=== PATIENT | female | born 1945 | race Native Hawaiian/Other Pacific Islander ===

== ENCOUNTER 2016-10-14 10:56 | Outpatient (CLI) | payer OTHER ==
[~2016-10-14 10:56] MED LIST: ACET7.5T70 PO; ALBUTEROL0.083 % IN; ALPHAGAN P0.1 % OPTH; AMBIEN CR12.5 MG PO; BACITRACIN OP; BENZ100C8 PO; BRIM0.2S OPTH; CELEBREX100 MG PO; CHLOSUS43 PO; CIPRODEX1 ML OT; CYCL10TA35 PO; DIPH25CA90 PO; GABA300C2 PO; HUMIRA PE1 SC; HYDR12.54 PO; HYDR25TA60 PO; HYDROCO/APAP1 T10 PO; LUTEIN20 MG OR; METHOTREXATE2.5 MG PO; MONT10TA PO; MUCINEX PO; PREDNISONE5 M1 OR; RANI150T78 PO; SIMCOR1 TA1 PO; SIMCOR1 TAB; SINGULAIR10 MG PO; Z-PAK PO; ZITHROMAX PO
== END 2016-10-14 20:10 | disposition home or self-care (01) ==
LOC: RAD 10:56
DX: M17.11 Unilateral primary osteoarthritis, right knee (principal)

== ENCOUNTER 2016-10-23 14:58 | Outpatient (CLI) | payer OTHER ==
[2016-10-23 16:18] LABS: PLATELET COUNT 212 K/uL (152-353)
[2016-10-23 16:19] LABS: SODIUM 136 mmol/L (136-145)
== END 2016-10-23 15:58 | disposition home or self-care (01) ==
LOC: LAB 14:58
PROVIDERS: Nurse Practitioner Family
DX: F41.8 Other specified anxiety disorders (principal); E78.4 Other hyperlipidemia; Z79.899 Other long term (current) drug therapy; Z51.81 Encounter for therapeutic drug level monitoring
CPT/HCPCS: 80053; 80061; 83036; 84439; 84443; 85027

== ENCOUNTER 2017-01-15 13:56 | Outpatient (CLI) | payer OTHER ==
[2017-01-15 14:27] LABS: PLATELET COUNT 226 K/uL (152-353)
[2017-01-15 14:37] LABS: POTASSIUM 3.7 mmol/L (3.6-5.2); SODIUM 140 mmol/L (136-145)
== END 2017-01-15 15:00 | disposition home or self-care (01) ==
LOC: LAB 13:56
PROVIDERS: Nurse Practitioner Family
DX: E11.9 Type 2 diabetes mellitus without complications (principal); I10 Essential (primary) hypertension; E55.9 Vitamin D deficiency, unspecified; E78.4 Other hyperlipidemia
CPT/HCPCS: 80053; 80061; 82306; 82607; 83036; 84439; 84443; 85027

== ENCOUNTER 2017-09-23 08:45 | Outpatient (CLI) | payer OTHER ==
[~2017-09-23] VITALS: Ht 162.6 cm; Wt 73.5 kg
== END 2017-09-23 12:00 | disposition home or self-care (01) ==
LOC: NM 08:45
DX: R07.89 Other chest pain (principal); I10 Essential (primary) hypertension; E11.9 Type 2 diabetes mellitus without complications
CPT/HCPCS: 93306; A9500; J2785

== ENCOUNTER 2017-12-24 09:35 | Outpatient (CLI) | payer OTHER | END 2017-12-24 20:53 | disposition home or self-care (01) | LOC: MAMMO 09:35 | DX: Z12.31 Encounter for screening mammogram for malignant neoplasm of breast (principal) ==

== ENCOUNTER 2018-10-13 10:08 | Outpatient (CLI) | payer OTHER | END 2018-10-13 19:47 | disposition home or self-care (01) | LOC: RAD 10:08 | DX: M25.512 Pain in left shoulder (principal) ==

== ENCOUNTER 2018-11-17 08:14 | Outpatient (CLI) | payer OTHER ==
[~2018-11-17] VITALS: Ht 162.6 cm; Wt 75.3 kg
== END 2018-11-17 19:36 | disposition home or self-care (01) ==
LOC: NM 08:14
DX: R94.31 Abnormal electrocardiogram [ECG] [EKG] (principal); I36.1 Nonrheumatic tricuspid (valve) insufficiency; I10 Essential (primary) hypertension
CPT/HCPCS: 93306; A9500; J2785

== ENCOUNTER 2018-12-14 09:51 | Outpatient (CLI) | payer OTHER ==
[2018-12-14 10:32] LABS: PLATELET COUNT 223 K/uL (152-353)
[2018-12-14 11:02] LABS: POTASSIUM 4.2 mmol/L (3.6-5.2)
== END 2018-12-14 22:59 | disposition home or self-care (01) ==
LOC: LABW 09:51
PROVIDERS: Specialist
DX: Z01.810 Encounter for preprocedural cardiovascular examination (principal); R93.1 Abnormal findings on diagnostic imaging of heart and coronary circulation
CPT/HCPCS: 36415; 80053; 85027

== ENCOUNTER 2018-12-28 10:00 | Outpatient (CLI) | payer OTHER | END 2018-12-28 19:35 | disposition home or self-care (01) | LOC: MAMMO 10:00 | DX: Z12.31 Encounter for screening mammogram for malignant neoplasm of breast (principal); Z13.820 Encounter for screening for osteoporosis; N95.8 Other specified menopausal and perimenopausal disorders ==

== ENCOUNTER 2019-01-19 08:31 | Outpatient (CLI) | payer OTHER | END 2019-01-19 21:17 | disposition home or self-care (01) | LOC: MAMMO 08:31 | DX: R92.8 Other abnormal and inconclusive findings on diagnostic imaging of breast (principal) ==

== ENCOUNTER 2021-05-02 08:10 | Outpatient (CLI) | payer OTHER | END 2021-05-02 19:04 | disposition home or self-care (01) | LOC: MAMMO 08:10 | PROVIDERS: ATTEND Registered Nurse | DX: Z12.31 Encounter for screening mammogram for malignant neoplasm of breast (principal) ==

== ENCOUNTER 2021-06-11 08:54 | Outpatient (CLI) | payer OTHER ==
[2021-06-11 09:29] LABS: PLATELET COUNT 212 K/uL (152-353)
== END 2021-06-11 21:05 | disposition home or self-care (01) ==
LOC: LABW 08:54
PROVIDERS: ATTEND Internal Medicine
DX: N28.9 Disorder of kidney and ureter, unspecified (principal)
CPT/HCPCS: 36415; 80053; 81000; 82043; 82330; 82570; 83735; 83970; 84100; 84155; 85027

== ENCOUNTER 2021-10-25 11:16 | Outpatient (CLI) | payer OTHER ==
[2021-10-25 11:43] LABS: PLATELET COUNT 242 K/uL (152-353)
[2021-10-25 11:55] LABS: POTASSIUM 3.5 mmol/L (3.6-5.2)
== END 2021-10-25 19:14 | disposition home or self-care (01) ==
LOC: LABW 11:16
PROVIDERS: ATTEND Internal Medicine
DX: N18.32 Chronic kidney disease, stage 3b (principal)
CPT/HCPCS: 80053; 81000; 82306; 82330; 82570; 83735; 83970; 84100; 84155; 85027

== ENCOUNTER 2022-08-08 09:00 | Outpatient (CLI) | payer OTHER | END 2022-08-08 19:01 | disposition home or self-care (01) | LOC: RAD 09:00 | PROVIDERS: ATTEND Registered Nurse | DX: Z01.818 Encounter for other preprocedural examination (principal) ==

== ENCOUNTER 2022-09-23 09:36 | Outpatient (CLI) | payer OTHER | END 2022-09-23 19:02 | disposition home or self-care (01) | LOC: MAMMO 09:36 | PROVIDERS: ATTEND Registered Nurse | DX: Z12.31 Encounter for screening mammogram for malignant neoplasm of breast (principal) ==

== ENCOUNTER 2022-09-24 08:56 | Outpatient (CLI) | payer OTHER ==
[~2022-09-24] VITALS: Ht 162.6 cm; Wt 66.2 kg
== END 2022-09-24 19:14 | disposition home or self-care (01) ==
LOC: NM 08:56
PROVIDERS: ATTEND Nurse Practitioner
DX: Z01.810 Encounter for preprocedural cardiovascular examination (principal)
CPT/HCPCS: A9500; J2785

== ENCOUNTER 2022-10-23 15:36 | Outpatient (CLI) | payer OTHER ==
[2022-10-23 15:49] LABS: PLATELET COUNT 283 K/uL (152-353)
== END 2022-10-23 19:00 | disposition home or self-care (01) ==
LOC: LABW 15:36
PROVIDERS: ATTEND Specialist
DX: I10 Essential (primary) hypertension (principal); R06.02 Shortness of breath
CPT/HCPCS: 36415; 80048; 85027

== ENCOUNTER 2022-10-24 11:07 | Outpatient (CLI) | payer OTHER | END 2022-10-24 21:25 | disposition home or self-care (01) | LOC: LABW 11:07 | PROVIDERS: ATTEND Specialist | DX: I10 Essential (primary) hypertension (principal); D72.828 Other elevated white blood cell count; Z79.899 Other long term (current) drug therapy | CPT/HCPCS: 87088 ==

== ENCOUNTER 2022-10-25 12:27 | Outpatient (CLI) | payer OTHER | END 2022-10-25 21:22 | disposition home or self-care (01) | LOC: LABW 12:27 | PROVIDERS: ATTEND Specialist | DX: I10 Essential (primary) hypertension (principal); D72.89 Other specified disorders of white blood cells; N39.0 Urinary tract infection, site not specified | CPT/HCPCS: 81002; 87088 ==